=== PATIENT | female | born 1975 | race American Indian/Alaskan Native ===

== ENCOUNTER → 2017-06-02 | Outpatient (CLI) | payer OTHER ==
[~2017-06-02] MED LIST: ACEBUTCAFT PO; ALBU90OI; AZIT250 PO; Amlodipine Besyl5 MG PO; BENZ100A PO; BLOOD PRESSURE MED; CETI10; CETI5 PO; CLON.3TP; CLON.5 PO; CYCL10 PO; DAILY VITE PO; DHEA PO; DIAZ5 PO; DICY20; DICY20 PO; DOXY100T53 PO; Daily Vite1 EACH PO; ESOM20; FLUSAL1005; FLUSAL1005 IH; FLUT.05NI; FOLI400 PO; Flonase 0.05% N16 GM; HYDACE5 PO; HYDHCL25; HYDHCL25 PO; HYDPAM25 PO; LABE100 PO; LOPE2C PO; Loperamide2 MG PO; MEDICAL MARIJUANA; MIGRAINE MED; NAPR250 PO; NAPROXEN 250 MG PO; Naprosyn375 MG PO; OMEP20ER PO; POTCHL20ER PO; PRAZ2 PO; PROM25 PO; Prinivil10 MG PO; RANI150 PO; RXPROM25 PO; SERT100; SODBIC650 PO; TRIA50 PO; Tessalon Perle100 MG; Tylenol325 MG PO; [UNRECOGNIZED DRUG - OTHER] XX
[2017-06-02 17:32] LABS: Free Thyroxine 0.94 ng/dL (0.70-1.60); Thyroid Stimulating Hormone 1.02 uIU/mL (0.360-4.800)
== END | disposition home or self-care (01) ==
LOC: LAB SHORT 16:33 → LAB 16:33
PROVIDERS: Internal Medicine Hematology & Oncology
DX: E53.8 Deficiency of other specified B group vitamins (principal); R53.81 Other malaise; R53.83 Other fatigue
CPT/HCPCS: 82607; 82746; 84439; 84443

== ENCOUNTER → 2017-09-03 | Outpatient (CLI) | payer SELFPAY ==
[2017-09-05 08:18] LABS: HIV SCREEN 4TH GENERATION WRFX Non Reactive (Non Reactive)
== END | disposition home or self-care (01) ==
LOC: LAB SHORT 12:10 → LAB 12:10
PROVIDERS: Internal Medicine Hematology & Oncology
DX: D72.819 Decreased white blood cell count, unspecified (principal); M35.00 Sjogren syndrome, unspecified
CPT/HCPCS: 87389

== ENCOUNTER → 2017-10-20 | Outpatient (CLI) | payer OTHER | END | disposition home or self-care (01) | LOC: LAB SRC 09:10 → LAB SHORT 09:10 | DX: R30.0 Dysuria (principal) | CPT/HCPCS: 87086 ==

== ENCOUNTER 2018-04-05 10:36 | Day surgery (SDC) | payer OTHER ==
[~2018-04-05] VITALS: Ht 172.7 cm; Wt 77.1 kg
[~2018-04-05 10:36] MED LIST changes: +ALBU2.5V5 NEB; +Calcium + Vita1 EACH PO; +EPIPEN 2-P0.3 MG/0.3 IM; +FAMC500 PO; +FLONASE ALLERG9.9 ML NS; +FLUT1DIS2 INH; +FURO80 PO; +HYDSUL200 PO; +Imitrex100 MG PO; +Medroxypro150 MG/11 IM; +NIFE10 PO; +Nortriptyline H25 MG PO; +Omeprazole20 M1 PO; +POTA10T PO; +ROPI.25 PO; +SUCR1 PO; +TOPIRAMATE ER200 MG PO
[2018-04-05] MEDS ORDERED: ALPR.5 PO (11:14)
== END 2018-04-05 12:11 | disposition home or self-care (01) ==
LOC: ORSCSDS 10:36
PROVIDERS: Internal Medicine Gastroenterology
PROC: 0D758ZZ Dilation of Esophagus, Via Natural or Artificial Opening Endoscopic (ICD-10-PCS; principal; 2018-04-05 12:30)
PROC: 0DB58ZX Excision of Esophagus, Via Natural or Artificial Opening Endoscopic, Diagnostic (ICD-10-PCS; principal; 2018-04-05 12:30)
DX: R13.10 Dysphagia, unspecified (principal); K21.9 Gastro-esophageal reflux disease without esophagitis; K44.9 Diaphragmatic hernia without obstruction or gangrene; E87.6 Hypokalemia; I10 Essential (primary) hypertension; G51.0 Bell's palsy; F32.9 Major depressive disorder, single episode, unspecified; F43.10 Post-traumatic stress disorder, unspecified; J45.909 Unspecified asthma, uncomplicated; Z87.891 Personal history of nicotine dependence; Z79.899 Other long term (current) drug therapy
CPT/HCPCS: 88305; J2250; J7120

== ENCOUNTER → 2018-04-30 | Outpatient (CLI) | payer OTHER ==
[~2018-04-30] MED LIST changes: +ALPR.5 PO
== END | disposition home or self-care (01) ==
LOC: LAB 09:47 → LAB SHORT 09:47
DX: D72.819 Decreased white blood cell count, unspecified (principal); F17.200 Nicotine dependence, unspecified, uncomplicated; N92.6 Irregular menstruation, unspecified; R42 Dizziness and giddiness
CPT/HCPCS: 84703

== ENCOUNTER 2018-06-19 09:58 | Emergency (ER) | payer OTHER ==
[~2018-06-19] VITALS: Ht 172.7 cm; Wt 72.6 kg
[2018-06-19 10:33] LABS: Source, Urine Clean Catch
[2018-06-19 10:38] LABS: BASOPHILS ABSOLUTE AUTO 0.02 K/mm3 (0.00-0.23); BASOPHILS PERCENT AUTO 1 % (0-2); EOSINOPHILS ABSOLUTE AUTO 0.26 K/mm3 (0.00-0.68); EOSINOPHILS PERCENT AUTO 7 % (0-6); Hemoglobin 11.2 g/dL (11.5-16.0); Mean Corpuscular HGB 32.4 pg (26.0-34.0); Mean Corpuscular Volume 101 fL (80-100); Mean Platelet Volume 10.7 fL (9.1-12.4); Platelet Count 228 K/mm3 (150-400); RDW Coefficient Variation 14.4 % (11.7-14.2); RDW Standard Deviation 53.1 fL (35.1-46.3); Red Blood Cell Count 3.46 M/mm3 (3.80-5.20)
[2018-06-19 10:41] LABS: IMMATURE GRAN ABSOLUTE AUTO 0.01 K/mm3 (0.00-0.10); IMMATURE GRAN PERCENT AUTO 0 % (0-1); LYMPHOCYTES ABSOLUTE AUTO 0.98 K/mm3 (0.84-5.20); LYMPHOCYTES PERCENT AUTO 27 % (21-46); MONOCYTES ABSOLUTE AUTO 0.29 K/mm3 (0.16-1.47); MONOCYTES PERCENT AUTO 8 % (4-13); NEUTROPHILS ABSOLUTE AUTO 2.04 K/mm3 (1.96-9.15); NEUTROPHILS PERCENT AUTO 57 % (41-73)
[2018-06-19 10:45] LABS: Appearance, Urine Clear (Clear); Bilirubin, Urine Neg (Neg); Blood, Urine Neg (Neg); Color, Urine Yellow (P-Yellow); Glucose Qualitative, Urine Neg (Neg); Ketones, Urine Neg (Neg); Leukocyte Esterase, Urine 3+ (Neg); Nitrite, Urine Neg (Neg); Protein, Urine 3+ (Neg); Urobilinogen, Urine NORM (Normal); pH, Urine 6.5 (5.0-8.0)
[2018-06-19 10:53] LABS: Red Blood Cells, Urine 0-2 /hpf (0-2); Squamous Epithelial Cells Few /hpf (Few); White Blood Cells, Urine 25-50 /hpf (0-5)
[2018-06-19 10:54] LABS: Bacteria Few /hpf
[2018-06-19 10:55] LABS: Trichomonas Mod /hpf
[2018-06-19 11:00] LABS: Alanine Aminotransfer (ALT/SGP 26 U/L (12-78); Albumin/Globulin Ratio 0.7 (0.8-1.8); Alk Phos 82 U/L (50-136); Anion Gap 8 mmol/L (6-16); Aspartate Aminotrans (AST/SGOT 21 U/L (12-37); Bilirubin, Total 0.2 mg/dL (0.1-1.0); Blood Urea Nitrogen 17 mg/dL (8-24); Bun/Creatinine Ratio 20.2 (12.0-20.0); CO2, Blood 19 mmol/L (21-32); Calcium, Blood 9.1 mg/dL (8.5-10.1); Chloride, Blood 116 mmol/L (98-108); Creatinine, Blood 0.84 mg/dL (0.40-1.00); Globulin, Blood 4.6 g/dL (2.2-4.0); Glomerular Filtration Rate >60 (60-); Glucose, Blood 80 mg/dL (70-99); Potassium, Blood 3.8 mmol/L (3.5-5.5); Sodium, Blood 143 mmol/L (136-145); Total Protein, Blood 7.6 g/dL (6.4-8.2)
[2018-06-19] MEDS ORDERED: MECL12.5 PO (12:13)
== END 2018-06-19 12:25 | disposition home or self-care (01) ==
LOC: ER 09:58
PROVIDERS: Emergency Medicine
DX: R42 Dizziness and giddiness (principal); I10 Essential (primary) hypertension; F41.9 Anxiety disorder, unspecified; G43.909 Migraine, unspecified, not intractable, without status migrainosus; J45.909 Unspecified asthma, uncomplicated; M79.7 Fibromyalgia; Z88.0 Allergy status to penicillin; Z91.040 Latex allergy status; Z88.5 Allergy status to narcotic agent; Z91.038 Other insect allergy status; Z88.8 Allergy status to other drugs, medicaments and biological substances; Z79.899 Other long term (current) drug therapy; Z87.891 Personal history of nicotine dependence
CPT/HCPCS: 36415; 80053; 81001; 84702; 85025; 87086; 96374; 99284-25; J2405; J7120